=== PATIENT | male | born 1940 | race Caucasian/White ===

== ENCOUNTER 2020-04-27 21:46 | Inpatient (IN) ==
[2020-04-28] MEDS ORDERED: Ondansetron 4 MG/2 ML VIAL IVP PRN (01:12)
[2020-04-28 01:39] LABS: Basophils % 0.1 %; Hematocrit 24.2 % (37.5-50.1); Hemoglobin 7.2 g/dL (12.9-16.9); Immature Granulocytes % 0.9 % (0-4); Lymphocytes # 0.4 K/mcL (0.6-4.6); Lymphocytes % 2.8 %; Mean Corpuscular HGB Conc 29.8 g/dL (31.6-35.5); Mean Corpuscular Hemoglobin 24.2 pg (28.0-33.3); Mean Corpuscular Volume 81.5 fL (83.0-100.0); Mean Platelet Volume 10.1 fL (9.4-12.4); Monocytes # 1.7 K/mcL (0.0-1.3); Neutrophils # 11.6 K/mcL (1.6-8.9); Nucleated Red Blood Cells 0.2 /100 WBC (0); Platelet Count 314 K/mcL (140-400); Red Blood Count 2.97 M/mcL (4.19-5.50); Red Cell Distribution Width 18.2 % (11.5-14.5); Segmented Neutrophils % 84.2 %; White Blood Count 13.8 K/mcL (4.3-11.1)
[2020-04-28 01:43] LABS: BUN/Creatinine Ratio 61 (6-26); Blood Urea Nitrogen 84 mg/dL (8-23); Calcium 7.7 mg/dL (8.6-10.3); Carbon Dioxide 26 mEq/L (23-29); Chloride 111 mEq/L (98-107); Creatine Kinase 302 Units/L (30-223); Glucose 96 mg/dL (70-105); Osmolality,Calculated 325 (280-300); Potassium 3.3 mEq/L (3.5-5.1); Sodium 145 mEq/L (136-145); eGFR For African Americans > 60 (> 60); eGFR For Non-African Americans 50 (> 60)
[2020-04-28] MEDS ORDERED: 0.9 % Sodium Chloride 1,000 ML IVC SCH ×2 (01:45→12:39)
[2020-04-28] MEDS ORDERED: *HR* OxyCODONE Immed Rel 5 MG TABLET PO PRN (01:49)
[2020-04-28] MEDS ORDERED: *HR* Labetalol 20 MG/4 ML SYRINGE IVP PRN (01:49)
[2020-04-28 01:57] LABS: INR 1.2; Prothrombin Time 14.1 Seconds (9.4-12.1)
[2020-04-28] MEDS ORDERED: cefTRIAXone 1,000 MG in 0.9 % Sodium Chloride Mini Bag 100 ML IVPB SCH (02:00)
[2020-04-28 02:43] LABS: Thyroid Stimulating Hormone 1.023 mcIU/mL (0.340-5.600)
[2020-04-28 02:57] LABS: Folate 10.4 ng/mL (3.0-16.0)
[2020-04-28] MEDS: Naloxone 0.4 MG/ML INJ IVP PRN ×2 (03:20→07:02)
[2020-04-28 04:58] LABS: Bilirubin,Urine Negative (Negative); Blood,Urine Moderate (Negative); Clarity,Urine Clear (Clear); Color,Urine Light-Yellow (Yellow); Glucose,Urine (UA) Normal (Normal); Ketones,Urine Negative (Negative); Leukocyte Esterase,Urine Negative (Negative); Mucus,Urine Few per lpf (None-Few); Nitrite,Urine Negative (Negative); PH,Urine 5.5 pH Units (5.0-8.0); Protein,Urine Trace mg/dL (Neg-Trace); RBC,Urine TNTC per hpf (0-3); Specific Gravity,Urine 1.018 (1.010-1.025); Urobilinogen,Urine Normal (Normal); WBC,Urine 0-3 per hpf (0-3)
[2020-04-28 10:26] LABS: Basophils % 0.1 %; Mean Platelet Volume 9.6 fL (9.4-12.4); Segmented Neutrophils % 84.4 %
[2020-04-28 10:28] LABS: Hematocrit 24.5 % (37.5-50.1); Immature Granulocytes % 0.8 % (0-4); Lymphocytes # 0.5 K/mcL (0.6-4.6); Lymphocytes % 3.2 %; Mean Corpuscular HGB Conc 28.6 g/dL (31.6-35.5); Mean Corpuscular Volume 83.9 fL (83.0-100.0); Monocytes # 1.7 K/mcL (0.0-1.3); Monocytes % 11.5 %; Neutrophils # 12.3 K/mcL (1.6-8.9); Nucleated Red Blood Cells 0.1 /100 WBC (0); Platelet Count 272 K/mcL (140-400); Red Blood Count 2.92 M/mcL (4.19-5.50); Red Cell Distribution Width 18.2 % (11.5-14.5); White Blood Count 14.6 K/mcL (4.3-11.1)
[2020-04-28 10:54] LABS: Anisocytosis 1+ (Not Present); Hypochromasia Present (Not Present); Platelet Estimate Normal (Normal); Poikilocytosis 1+ (Not Present)
[2020-04-28] MEDS: *HR* OxyCODONE Immed Rel 5 MG TABLET PO PRN ×2 (12:19→13:54)
[2020-04-28] MEDS: Ipratropium/Albuterol Neb 3 ML IH SCH ×4 (12:21→23:44)
[2020-04-28] MEDS ORDERED: Iron Sucrose Complex 400 MG in 0.9 % Sodium Chloride 250 ML IVPB ONE (12:37)
[2020-04-28] MEDS ORDERED: CeFAZolin Syr 2,000MG/20 ML 2,000 MG/20 ML SYRINGE IVPB ONE (14:19)
[2020-04-28] MEDS ORDERED: Lidocaine HCL 4 ML Topical Solution (Laryng-O-Jet Kit Sterile Pak) TP ONE (14:27)
[2020-04-28] MEDS ORDERED: Ondansetron 4 MG/2 ML VIAL ONE (14:27)
[2020-04-28] MEDS ORDERED: Dexamethasone 4 MG/ML VIAL ONE (14:27)
[2020-04-28] MEDS ORDERED: *HR* Succinylcholine 200 MG/10 ML VIAL IVP ONE (14:27)
[2020-04-28] MEDS ORDERED: Lidocaine -MPF 2% 2 ML VIAL ONE (14:27)
[2020-04-28] MEDS ORDERED: *HR* FentaNYL (PF) 100 MCG/2 ML VIAL ONE (14:28)
[2020-04-28] MEDS ORDERED: *HR* Propofol 200 MG/20 ML VIAL IVP ONE (14:28)
[2020-04-28] MEDS ORDERED: *HR* Vasopressin 20 UNIT/ML VIAL ONE (14:48)
[2020-04-28] MEDS ORDERED: *HR* Norepinephrine 4 MG/4 ML VIAL IVC ONE (14:48)
[2020-04-28] MEDS ORDERED: Albumin Human 5% 25.0 GM/500 ML IV.SOLN ONE (14:48)
[2020-04-28] MEDS ORDERED: Tranexamic Acid 1,000 MG/10 ML VIAL ONE (15:10)
[2020-04-28] MEDS ORDERED: EPHEDrine 50 MG/ML VIAL ONE (15:14)
[2020-04-28] MEDS ORDERED: Lacri-Lube 3.5 GM TUBE ONE (15:19)
[2020-04-28] MEDS ORDERED: Povidone-Iodine 45 ML, Sodium Chloride IRRigation 1,000 ML IR ONE (15:30)
[2020-04-28] MEDS ORDERED: Sugammadex Sodium 200 MG/2 ML VIAL IV ONE (16:39)
[2020-04-28] MEDS ORDERED: *HR* Midazolam HCl 5 MG/5 ML VIAL IVP ONE (17:53)
[2020-04-28] MEDS: *HR* FentaNYL (PF) 100 MCG/2 ML VIAL IVP PRN ×2 (17:56→18:19)
[2020-04-28 18:28] LABS: ABG Base Excess -2 mEq/L (-2 to 3); ABG HCO3 29 mEq/L (21-27); ABG Oxygen Saturation 94 % (95-98); ABG PCO2 90 mmHg (35-45); ABG PH 7.11 pH Units (7.32-7.45); ABG PO2 101 mmHg (85-104); ABG TCO2 31 mEq/L (20-26); Blood Gas Modality ASSIST CONTROL; Blood Gas VT 350 cc
[2020-04-28 18:32] LABS: Immature Granulocytes % 1.8 % (0-4)
[2020-04-28 18:34] LABS: Basophils % 0.2 %; Hematocrit 29.4 % (37.5-50.1); Hemoglobin 8.5 g/dL (12.9-16.9); Lymphocytes # 0.4 K/mcL (0.6-4.6); Mean Corpuscular HGB Conc 28.9 g/dL (31.6-35.5); Mean Corpuscular Hemoglobin 25.1 pg (28.0-33.3); Monocytes % 7.3 %; Neutrophils # 12.5 K/mcL (1.6-8.9); Nucleated Red Blood Cells 0.2 /100 WBC (0); Platelet Count 272 K/mcL (140-400); Red Blood Count 3.38 M/mcL (4.19-5.50); Red Cell Distribution Width 17.7 % (11.5-14.5); Segmented Neutrophils % 87.7 %; White Blood Count 14.3 K/mcL (4.3-11.1)
[2020-04-28 18:45] LABS: INR 1.2; Prothrombin Time 14.3 Seconds (9.4-12.1)
[2020-04-28] MEDS ORDERED: Artificial Tears SOLN 15 ML BOTTLE BOTH EYES PRN (18:47)
[2020-04-28] MEDS: Midazolam HCl 50 MG/100 ML IV.SOLN IVC SCH (18:55)
[2020-04-28] MEDS: FentaNYL (PF) 1,000 MCG/100 ML IV.SOLN IVC SCH (18:55)
[2020-04-28 18:57] LABS: Alanine Aminotransferase 23 Units/L (7-52); Albumin 3.4 g/dL (3.5-5.7); Albumin/Globulin Ratio 1.2 (1.1-2.2); Alkaline Phosphatase 47 Units/L (34-104); Aspartate Amino Transferase 26 Units/L (13-39); BUN/Creatinine Ratio 51 (6-26); Bilirubin,Total 1.1 mg/dL (0.3-1.0); Blood Urea Nitrogen 61 mg/dL (8-23); Calcium 7.9 mg/dL (8.6-10.3); Carbon Dioxide 26 mEq/L (23-29); Chloride 116 mEq/L (98-107); Globulin 2.8 g/dL (2.4-3.5); Glucose 117 mg/dL (70-105); Osmolality,Calculated 326 (280-300); Potassium 4.2 mEq/L (3.5-5.1); Sodium 149 mEq/L (136-145); Total Protein 6.2 g/dL (6.4-8.9); eGFR For African Americans > 60 (> 60); eGFR For Non-African Americans 59 (> 60)
[2020-04-28 18:59] LABS: Anisocytosis 1+ (Not Present); Hypochromasia Present (Not Present); Platelet Estimate Normal (Normal); Poikilocytosis 1+ (Not Present); Target Cells 1+ (Not Present)
[2020-04-28 20:27] LABS: ABG Base Excess 4 mEq/L (-2 to 3); ABG HCO3 31 mEq/L (21-27); ABG Oxygen Saturation 98 % (95-98); ABG PCO2 64 mmHg (35-45); ABG PO2 116 mmHg (85-104); ABG TCO2 33 mEq/L (20-26); Blood Gas Modality ASSIST CONTROL; Blood Gas VT 350 cc
[2020-04-28] MEDS: Sennosides/Docusate Sodium TABLET PO SCH (21:07)
[2020-04-28] MEDS: Chlorhexidine Rinse 15 ML MOUTHWASH MM SCH (21:12)
[2020-04-28] MEDS: Pantoprazole 40 MG VIAL IVP SCH (21:12)
[2020-04-28] MEDS: Artificial Tears SOLN 15 ML BOTTLE BOTH EYES SCH ×2 (21:12→23:21)
[2020-04-28] MEDS: Cefepime HCl 1,000 MG in Water for inj. (sterile) 10 ML IVP SCH (23:21)
[2020-04-29] MEDS: Ipratropium/Albuterol Neb 3 ML IH SCH ×6 (03:27→23:38)
[2020-04-29 04:37] LABS: ABG Base Excess 2 mEq/L (-2 to 3); ABG HCO3 29 mEq/L (21-27); ABG Oxygen Saturation 87 % (95-98); ABG PCO2 57 mmHg (35-45); ABG PH 7.31 pH Units (7.32-7.45); ABG PO2 59 mmHg (85-104); ABG TCO2 31 mEq/L (20-26); Blood Gas Modality ASSIST CONTROL; Blood Gas VT 350 cc
[2020-04-29] MEDS: Artificial Tears SOLN 15 ML BOTTLE BOTH EYES SCH ×6 (06:32→23:26)
[2020-04-29 07:44] LABS: Basophils % 0.2 %; Hematocrit 24.1 % (37.5-50.1); Hemoglobin 7.2 g/dL (12.9-16.9); Immature Granulocytes % 1.3 % (0-4); Lymphocytes # 0.3 K/mcL (0.6-4.6); Lymphocytes % 2.9 %; Mean Corpuscular HGB Conc 29.9 g/dL (31.6-35.5); Mean Corpuscular Hemoglobin 24.9 pg (28.0-33.3); Mean Corpuscular Volume 83.4 fL (83.0-100.0); Mean Platelet Volume 9.4 fL (9.4-12.4); Monocytes # 1.1 K/mcL (0.0-1.3); Monocytes % 10.1 %; Neutrophils # 9.6 K/mcL (1.6-8.9); Nucleated Red Blood Cells 0.4 /100 WBC (0); Platelet Count 225 K/mcL (140-400); Red Blood Count 2.89 M/mcL (4.19-5.50); Red Cell Distribution Width 17.7 % (11.5-14.5); Segmented Neutrophils % 85.5 %; White Blood Count 11.2 K/mcL (4.3-11.1)
[2020-04-29 08:11] LABS: Calcium 8.2 mg/dL (8.6-10.3); Magnesium 2.5 mg/dL (1.6-2.6); Potassium 3.8 mEq/L (3.5-5.1)
[2020-04-29] MEDS: Pantoprazole 40 MG VIAL IVP SCH (09:28)
[2020-04-29] MEDS: Chlorhexidine Rinse 15 ML MOUTHWASH MM SCH ×2 (09:29→20:01)
[2020-04-29] MEDS: Sennosides/Docusate Sodium TABLET PO SCH ×2 (09:30→20:01)
[2020-04-29] MEDS: Cefepime HCl 1,000 MG in Water for inj. (sterile) 10 ML IVP SCH ×2 (12:41→23:26)
[2020-04-29] MEDS: *HR* Heparin 5,000 UNIT/ML VIAL SQ SCH ×2 (14:17→21:09)
[2020-04-29] MEDS: Nicotine 21 MG PATCH.TD24 TD SCH (15:20)
[2020-04-29 17:23] LABS: Hematocrit 24.2 % (37.5-50.1); Hemoglobin 7.3 g/dL (12.9-16.9); Mean Corpuscular HGB Conc 30.2 g/dL (31.6-35.5); Mean Corpuscular Hemoglobin 24.9 pg (28.0-33.3); Mean Corpuscular Volume 82.6 fL (83.0-100.0); Mean Platelet Volume 9.4 fL (9.4-12.4); Platelet Count 215 K/mcL (140-400); Red Blood Count 2.93 M/mcL (4.19-5.50); Red Cell Distribution Width 18.2 % (11.5-14.5); White Blood Count 12.3 K/mcL (4.3-11.1)
[2020-04-29 17:47] LABS: Calcium 8.1 mg/dL (8.6-10.3); Potassium 3.3 mEq/L (3.5-5.1)
[2020-04-29] MEDS: Budesonide/Formoterol 160/4.5 1 PUFF INH IH SCH (19:26)
[2020-04-29] MEDS: FentaNYL (PF) 1,000 MCG/100 ML IV.SOLN IVC SCH (19:48)
[2020-04-29] MEDS: Midazolam HCl 50 MG/100 ML IV.SOLN IVC SCH (20:01)
[2020-04-30] MEDS: Midazolam HCl 50 MG/100 ML IV.SOLN IVC SCH (02:57)
[2020-04-30] MEDS: Artificial Tears SOLN 15 ML BOTTLE BOTH EYES SCH ×6 (03:00→23:47)
[2020-04-30] MEDS: Ipratropium/Albuterol Neb 3 ML IH SCH ×6 (03:19→23:26)
[2020-04-30 05:00] LABS: ABG Base Excess 2 mEq/L (-2 to 3); ABG HCO3 30 mEq/L (21-27); ABG Oxygen Saturation 95 % (95-98); ABG PCO2 60 mmHg (35-45); ABG PO2 84 mmHg (85-104); ABG TCO2 32 mEq/L (20-26); Blood Gas Modality AF; Blood Gas VT 350 cc
[2020-04-30 05:46] LABS: Alanine Aminotransferase 16 Units/L (7-52); Albumin/Globulin Ratio 1.1 (1.1-2.2); Alkaline Phosphatase 44 Units/L (34-104); Aspartate Amino Transferase 20 Units/L (13-39); BUN/Creatinine Ratio 45 (6-26); Bilirubin,Total 0.7 mg/dL (0.3-1.0); Blood Urea Nitrogen 60 mg/dL (8-23); Calcium 8.3 mg/dL (8.6-10.3); Carbon Dioxide 25 mEq/L (23-29); Chloride 118 mEq/L (98-107); Globulin 2.8 g/dL (2.4-3.5); Glucose 98 mg/dL (70-105); Osmolality,Calculated 333 (280-300); Potassium 3.5 mEq/L (3.5-5.1); Sodium 153 mEq/L (136-145); Total Protein 5.8 g/dL (6.4-8.9); eGFR For African Americans > 60 (> 60); eGFR For Non-African Americans 52 (> 60)
[2020-04-30] MEDS: *HR* Heparin 5,000 UNIT/ML VIAL SQ SCH ×3 (07:21→22:06)
[2020-04-30] MEDS: Chlorhexidine Rinse 15 ML MOUTHWASH MM SCH ×2 (07:21→20:31)
[2020-04-30] MEDS: Pantoprazole 40 MG VIAL IVP SCH (07:21)
[2020-04-30] MEDS: Sennosides/Docusate Sodium TABLET PO SCH ×2 (07:22→19:52)
[2020-04-30] MEDS: Budesonide/Formoterol 160/4.5 1 PUFF INH IH SCH ×2 (07:32→19:30)
[2020-04-30] MEDS: Cefepime HCl 1,000 MG in Water for inj. (sterile) 10 ML IVP SCH ×2 (12:57→23:47)
[2020-04-30 14:17] LABS: Hematocrit 26.1 % (37.5-50.1); Hemoglobin 7.7 g/dL (12.9-16.9); Mean Corpuscular HGB Conc 29.5 g/dL (31.6-35.5); Mean Corpuscular Hemoglobin 25.5 pg (28.0-33.3); Mean Corpuscular Volume 86.4 fL (83.0-100.0); Mean Platelet Volume 9.6 fL (9.4-12.4); Platelet Count 217 K/mcL (140-400); Red Blood Count 3.02 M/mcL (4.19-5.50); White Blood Count 16.1 K/mcL (4.3-11.1)
[2020-04-30] MEDS: Nicotine 21 MG PATCH.TD24 TD SCH (16:21)
[2020-04-30] MEDS: D5% in Water 1,000 ML IVC SCH (16:24)
[2020-04-30] MEDS: FentaNYL (PF) 1,000 MCG/100 ML IV.SOLN IVC SCH (19:50)
[2020-04-30] MEDS: *HR* FentaNYL (PF) 100 MCG/2 ML VIAL IVP PRN (22:09)
[2020-05-01] MEDS: *HR* FentaNYL (PF) 100 MCG/2 ML VIAL IVP PRN ×7 (00:55→16:23)
[2020-05-01] MEDS: D5% in Water 1,000 ML IVC SCH ×3 (02:21→19:44)
[2020-05-01] MEDS: Ipratropium/Albuterol Neb 3 ML IH SCH ×5 (03:22→20:07)
[2020-05-01] MEDS: Artificial Tears SOLN 15 ML BOTTLE BOTH EYES SCH ×2 (04:01→10:42)
[2020-05-01] MEDS: *HR* Heparin 5,000 UNIT/ML VIAL SQ SCH ×2 (05:18→12:55)
[2020-05-01] MEDS: Budesonide/Formoterol 160/4.5 1 PUFF INH IH SCH ×2 (07:27→20:06)
[2020-05-01 08:45] LABS: Hemoglobin 8.3 g/dL (12.9-16.9); Mean Corpuscular HGB Conc 29.6 g/dL (31.6-35.5); Mean Corpuscular Volume 84.3 fL (83.0-100.0); Mean Platelet Volume 9.6 fL (9.4-12.4); Platelet Count 203 K/mcL (140-400); Red Blood Count 3.32 M/mcL (4.19-5.50); Red Cell Distribution Width 19.2 % (11.5-14.5)
[2020-05-01 09:03] LABS: Alanine Aminotransferase 22 Units/L (7-52); Albumin/Globulin Ratio 1.1 (1.1-2.2); Alkaline Phosphatase 47 Units/L (34-104); Aspartate Amino Transferase 29 Units/L (13-39); BUN/Creatinine Ratio 44 (6-26); Bilirubin,Total 0.8 mg/dL (0.3-1.0); Blood Urea Nitrogen 45 mg/dL (8-23); Calcium 8.7 mg/dL (8.6-10.3); Carbon Dioxide 32 mEq/L (23-29); Chloride 115 mEq/L (98-107); Globulin 2.8 g/dL (2.4-3.5); Glucose 104 mg/dL (70-105); Osmolality,Calculated 324 (280-300); Potassium 3.7 mEq/L (3.5-5.1); Sodium 151 mEq/L (136-145); Total Protein 5.8 g/dL (6.4-8.9); eGFR For African Americans > 60 (> 60); eGFR For Non-African Americans > 60 (> 60)
[2020-05-01] MEDS: Chlorhexidine Rinse 15 ML MOUTHWASH MM SCH (09:40)
[2020-05-01] MEDS: Pantoprazole 40 MG VIAL IVP SCH (09:41)
[2020-05-01] MEDS: Sennosides/Docusate Sodium TABLET PO SCH ×2 (10:42→19:46)
[2020-05-01] MEDS: Cefepime HCl 1,000 MG in Water for inj. (sterile) 10 ML IVP SCH (12:54)
[2020-05-01] MEDS: Nicotine 21 MG PATCH.TD24 TD SCH (16:24)
[2020-05-01] MEDS ORDERED: *HR* OxyCODONE Immed Rel 5 MG TABLET PO PRN (18:26)
[2020-05-01] MEDS ORDERED: Naloxone 0.4 MG/ML INJ IVP PRN (18:26)
[2020-05-01] MEDS ORDERED: *HR* FentaNYL (PF) 100 MCG/2 ML VIAL IVP PRN (18:26)
[2020-05-01] MEDS ORDERED: *HR* Labetalol 20 MG/4 ML SYRINGE IVP PRN (18:26)
[2020-05-01] MEDS ORDERED: Ondansetron 4 MG/2 ML VIAL IVP PRN (18:26)
[2020-05-01] MEDS ORDERED: D5% in Water 1,000 ML IVC ONE (18:43)
[2020-05-02] MEDS: Ipratropium/Albuterol Neb 3 ML IH SCH ×7 (00:29→23:04)
[2020-05-02] MEDS: *HR* Heparin 5,000 UNIT/ML VIAL SQ SCH ×4 (01:00→20:30)
[2020-05-02 01:56] LABS: Hematocrit 25.2 % (37.5-50.1); Hemoglobin 7.6 g/dL (12.9-16.9); Mean Corpuscular HGB Conc 30.2 g/dL (31.6-35.5); Mean Corpuscular Hemoglobin 25.5 pg (28.0-33.3); Mean Corpuscular Volume 84.6 fL (83.0-100.0); Mean Platelet Volume 10.3 fL (9.4-12.4); Platelet Count 185 K/mcL (140-400); Red Blood Count 2.98 M/mcL (4.19-5.50); White Blood Count 15.7 K/mcL (4.3-11.1)
[2020-05-02 02:06] LABS: BUN/Creatinine Ratio 42 (6-26); Blood Urea Nitrogen 38 mg/dL (8-23); Calcium 8.4 mg/dL (8.6-10.3); Carbon Dioxide 34 mEq/L (23-29); Chloride 111 mEq/L (98-107); Glucose 131 mg/dL (70-105); Osmolality,Calculated 315 (280-300); Potassium 3.8 mEq/L (3.5-5.1); Sodium 147 mEq/L (136-145); eGFR For African Americans > 60 (> 60); eGFR For Non-African Americans > 60 (> 60)
[2020-05-02] MEDS ORDERED: MethylPREDNISolone 40 MG/ML VIAL IVP SCH (06:00)
[2020-05-02] MEDS: Budesonide/Formoterol 160/4.5 1 PUFF INH IH SCH ×2 (07:29→20:21)
[2020-05-02] MEDS: *HR* FentaNYL (PF) 100 MCG/2 ML VIAL IVP PRN ×2 (08:04→13:54)
[2020-05-02] MEDS ORDERED: cefTRIAXone 1,000 MG in Water for inj. (sterile) 10 ML IVP SCH (09:00)
[2020-05-02] MEDS: D5% in Water 1,000 ML IVC SCH ×2 (09:02→22:00)
[2020-05-02] MEDS: Sennosides/Docusate Sodium TABLET PO SCH ×2 (09:04→20:30)
[2020-05-02] MEDS: cefTRIAXone 1,000 MG in Water for inj. (sterile) 10 ML IVP SCH (09:04)
[2020-05-02] MEDS: Pantoprazole 40 MG VIAL IVP SCH (09:04)
[2020-05-02] MEDS: Nicotine 21 MG PATCH.TD24 TD SCH (17:39)
[2020-05-03] MEDS: Ipratropium/Albuterol Neb 3 ML IH SCH ×6 (03:27→23:51)
[2020-05-03] MEDS: *HR* Heparin 5,000 UNIT/ML VIAL SQ SCH ×3 (06:00→21:57)
[2020-05-03 07:28] LABS: Hematocrit 24.4 % (37.5-50.1); Hemoglobin 7.5 g/dL (12.9-16.9); Mean Corpuscular HGB Conc 30.7 g/dL (31.6-35.5); Mean Corpuscular Hemoglobin 25.7 pg (28.0-33.3); Mean Corpuscular Volume 83.6 fL (83.0-100.0); Platelet Count 194 K/mcL (140-400); Red Blood Count 2.92 M/mcL (4.19-5.50); Red Cell Distribution Width 19.8 % (11.5-14.5)
[2020-05-03 07:29] LABS: White Blood Count 24.7 K/mcL (4.3-11.1)
[2020-05-03 07:31] LABS: Basophils % 0.2 %
[2020-05-03 07:33] LABS: Basophils # 0.1 K/mcL (0.0-0.2); Hematocrit 24.1 % (37.5-50.1); Hemoglobin 7.5 g/dL (12.9-16.9); Immature Granulocytes % 1.3 % (0-4); Lymphocytes # 0.4 K/mcL (0.6-4.6); Lymphocytes % 1.6 %; Mean Corpuscular HGB Conc 31.1 g/dL (31.6-35.5); Mean Corpuscular Hemoglobin 25.9 pg (28.0-33.3); Mean Corpuscular Volume 83.1 fL (83.0-100.0); Monocytes # 1.1 K/mcL (0.0-1.3); Monocytes % 4.6 %; Neutrophils # 22.4 K/mcL (1.6-8.9); Platelet Count 190 K/mcL (140-400); Red Cell Distribution Width 19.5 % (11.5-14.5); Segmented Neutrophils % 92.3 %; White Blood Count 24.3 K/mcL (4.3-11.1)
[2020-05-03 08:32] LABS: BUN/Creatinine Ratio 40 (6-26); Blood Urea Nitrogen 36 mg/dL (8-23); Calcium 8.3 mg/dL (8.6-10.3); Carbon Dioxide 30 mEq/L (23-29); Chloride 104 mEq/L (98-107); Glucose 150 mg/dL (70-105); Osmolality,Calculated 297 (280-300); Potassium 3.6 mEq/L (3.5-5.1); Sodium 138 mEq/L (136-145); eGFR For African Americans > 60 (> 60); eGFR For Non-African Americans > 60 (> 60)
[2020-05-03] MEDS: Pantoprazole 40 MG VIAL IVP SCH (09:04)
[2020-05-03] MEDS: Sennosides/Docusate Sodium TABLET PO SCH ×2 (09:04→21:56)
[2020-05-03] MEDS: cefTRIAXone 1,000 MG in Water for inj. (sterile) 10 ML IVP SCH (09:05)
[2020-05-03] MEDS: Budesonide/Formoterol 160/4.5 1 PUFF INH IH SCH ×2 (11:03→20:05)
[2020-05-03 11:11] LABS: Macrocytosis Present (Not Present); Platelet Estimate Decreased (Normal)
[2020-05-03 11:12] LABS: Anisocytosis 1+ (Not Present); Hypochromasia Present (Not Present)
[2020-05-03] MEDS: D5% in Water 1,000 ML IVC SCH (12:12)
[2020-05-03] MEDS: Nicotine 21 MG PATCH.TD24 TD SCH (14:18)
[2020-05-03] MEDS ORDERED: D5% in 0.45% NACL 1,000 ML IVC SCH (14:22)
[2020-05-04] MEDS: Ipratropium/Albuterol Neb 3 ML IH SCH ×6 (04:25→23:19)
[2020-05-04 05:13] LABS: Basophils % 0.1 %; Hematocrit 23.4 % (37.5-50.1); Hemoglobin 7.2 g/dL (12.9-16.9); Immature Granulocytes % 0.7 % (0-4); Lymphocytes # 0.6 K/mcL (0.6-4.6); Lymphocytes % 2.8 %; Mean Corpuscular HGB Conc 30.8 g/dL (31.6-35.5); Mean Corpuscular Hemoglobin 25.3 pg (28.0-33.3); Mean Corpuscular Volume 82.1 fL (83.0-100.0); Mean Platelet Volume 10.4 fL (9.4-12.4); Monocytes # 1.3 K/mcL (0.0-1.3); Monocytes % 6.4 %; Neutrophils # 18.3 K/mcL (1.6-8.9); Platelet Count 211 K/mcL (140-400); Red Blood Count 2.85 M/mcL (4.19-5.50); White Blood Count 20.3 K/mcL (4.3-11.1)
[2020-05-04 05:20] LABS: BUN/Creatinine Ratio 36 (6-26); Blood Urea Nitrogen 42 mg/dL (8-23); Calcium 8.1 mg/dL (8.6-10.3); Carbon Dioxide 29 mEq/L (23-29); Chloride 102 mEq/L (98-107); Glucose 105 mg/dL (70-105); Osmolality,Calculated 295 (280-300); Potassium 3.4 mEq/L (3.5-5.1); Sodium 137 mEq/L (136-145); eGFR For African Americans > 60 (> 60); eGFR For Non-African Americans 60 (> 60)
[2020-05-04] MEDS: *HR* Heparin 5,000 UNIT/ML VIAL SQ SCH ×3 (05:29→22:30)
[2020-05-04] MEDS ORDERED: Potassium Chloride Elixir 20 MEQ/15 ML UDC PO ONE (07:26)
[2020-05-04] MEDS ORDERED: Furosemide 20 MG/2 ML VIAL IVP ONE (10:24)
[2020-05-04] MEDS: Budesonide/Formoterol 160/4.5 1 PUFF INH IH SCH ×2 (11:23→19:56)
[2020-05-04] MEDS: Pantoprazole 40 MG VIAL IVP SCH (15:26)
[2020-05-04] MEDS: cefTRIAXone 1,000 MG in Water for inj. (sterile) 10 ML IVP SCH (15:27)
[2020-05-04] MEDS: Nicotine 21 MG PATCH.TD24 TD SCH (15:28)
[2020-05-04] MEDS: Sennosides/Docusate Sodium TABLET PO SCH ×2 (15:28→22:30)
[2020-05-05] MEDS: Ipratropium/Albuterol Neb 3 ML IH SCH ×6 (04:07→23:21)
[2020-05-05] MEDS: *HR* Heparin 5,000 UNIT/ML VIAL SQ SCH ×3 (05:44→21:41)
[2020-05-05] MEDS: Budesonide/Formoterol 160/4.5 1 PUFF INH IH SCH ×2 (07:44→19:49)
[2020-05-05 07:53] LABS: Basophils % 0.1 %; Eosinophils # 0.1 K/mcL (0.0-0.6); Eosinophils % 0.6 %; Hematocrit 26.3 % (37.5-50.1); Immature Granulocytes % 0.6 % (0-4); Lymphocytes # 0.5 K/mcL (0.6-4.6); Lymphocytes % 2.2 %; Mean Corpuscular HGB Conc 30.4 g/dL (31.6-35.5); Mean Corpuscular Hemoglobin 25.3 pg (28.0-33.3); Mean Corpuscular Volume 83.2 fL (83.0-100.0); Mean Platelet Volume 10.5 fL (9.4-12.4); Monocytes # 1.3 K/mcL (0.0-1.3); Neutrophils # 18.8 K/mcL (1.6-8.9); Platelet Count 237 K/mcL (140-400); Red Blood Count 3.16 M/mcL (4.19-5.50); Red Cell Distribution Width 21.1 % (11.5-14.5); Segmented Neutrophils % 90.5 %; White Blood Count 20.8 K/mcL (4.3-11.1)
[2020-05-05 08:12] LABS: BUN/Creatinine Ratio 40 (6-26); Blood Urea Nitrogen 39 mg/dL (8-23); Calcium 8.2 mg/dL (8.6-10.3); Carbon Dioxide 29 mEq/L (23-29); Chloride 103 mEq/L (98-107); Glucose 48 mg/dL (70-105); Osmolality,Calculated 297 (280-300); Potassium 3.3 mEq/L (3.5-5.1); Sodium 140 mEq/L (136-145); eGFR For African Americans > 60 (> 60); eGFR For Non-African Americans > 60 (> 60)
[2020-05-05] MEDS ORDERED: Potassium Chloride 40 MEQ, Lidocaine 1% 2 ML in 0.9 % Sodium Chloride 500 ML IVPB ONE (08:22)
[2020-05-05] MEDS: Sennosides/Docusate Sodium TABLET PO SCH ×2 (09:31→21:41)
[2020-05-05] MEDS: Pantoprazole 40 MG VIAL IVP SCH (09:33)
[2020-05-05] MEDS: cefTRIAXone 1,000 MG in Water for inj. (sterile) 10 ML IVP SCH (09:34)
[2020-05-05] MEDS: Nicotine 21 MG PATCH.TD24 TD SCH (14:10)
[2020-05-06] MEDS: Ipratropium/Albuterol Neb 3 ML IH SCH ×6 (03:36→23:12)
[2020-05-06] MEDS: *HR* Heparin 5,000 UNIT/ML VIAL SQ SCH ×3 (06:04→21:55)
[2020-05-06] MEDS: Budesonide/Formoterol 160/4.5 1 PUFF INH IH SCH ×2 (07:49→20:23)
[2020-05-06] MEDS: Sennosides/Docusate Sodium TABLET PO SCH ×2 (09:00→21:55)
[2020-05-06] MEDS: Pantoprazole 40 MG VIAL IVP SCH (09:01)
[2020-05-06] MEDS: cefTRIAXone 1,000 MG in Water for inj. (sterile) 10 ML IVP SCH (09:01)
[2020-05-06 14:10] LABS: Basophils % 0.1 %; Eosinophils # 0.2 K/mcL (0.0-0.6); Eosinophils % 1.6 %; Hematocrit 27.2 % (37.5-50.1); Hemoglobin 8.2 g/dL (12.9-16.9); Immature Granulocytes % 0.5 % (0-4); Lymphocytes # 0.5 K/mcL (0.6-4.6); Lymphocytes % 3.2 %; Mean Corpuscular HGB Conc 30.1 g/dL (31.6-35.5); Mean Corpuscular Volume 82.9 fL (83.0-100.0); Mean Platelet Volume 10.5 fL (9.4-12.4); Monocytes # 0.9 K/mcL (0.0-1.3); Monocytes % 6.5 %; Neutrophils # 12.5 K/mcL (1.6-8.9); Platelet Count 271 K/mcL (140-400); Red Blood Count 3.28 M/mcL (4.19-5.50); Segmented Neutrophils % 88.1 %; White Blood Count 14.2 K/mcL (4.3-11.1)
[2020-05-06 14:28] LABS: BUN/Creatinine Ratio 42 (6-26); Blood Urea Nitrogen 42 mg/dL (8-23); Carbon Dioxide 30 mEq/L (23-29); Chloride 106 mEq/L (98-107); Glucose 136 mg/dL (70-105); Osmolality,Calculated 307 (280-300); Potassium 3.6 mEq/L (3.5-5.1); Sodium 142 mEq/L (136-145); eGFR For African Americans > 60 (> 60); eGFR For Non-African Americans > 60 (> 60)
[2020-05-06] MEDS: Nicotine 21 MG PATCH.TD24 TD SCH (14:45)
[2020-05-06] MEDS: cephALEXin 500 MG CAPSULE PO SCH ×2 (18:15→21:55)
[2020-05-07] MEDS: Ipratropium/Albuterol Neb 3 ML IH SCH ×5 (03:54→20:43)
[2020-05-07] MEDS: Sennosides/Docusate Sodium TABLET PO SCH ×4 (07:45→20:16)
[2020-05-07] MEDS: *HR* Heparin 5,000 UNIT/ML VIAL SQ SCH ×3 (08:52→20:16)
[2020-05-07] MEDS: cephALEXin 500 MG CAPSULE PO SCH ×5 (08:55→20:16)
[2020-05-07] MEDS: Pantoprazole 40 MG VIAL IVP SCH (08:55)
[2020-05-07] MEDS: Budesonide/Formoterol 160/4.5 1 PUFF INH IH SCH ×2 (10:53→20:43)
[2020-05-07] MEDS: Nicotine 21 MG PATCH.TD24 TD SCH (14:09)
[2020-05-08] MEDS: Ipratropium/Albuterol Neb 3 ML IH SCH ×7 (00:29→19:58)
[2020-05-08] MEDS: *HR* Heparin 5,000 UNIT/ML VIAL SQ SCH ×2 (06:00→14:43)
[2020-05-08] MEDS: Budesonide/Formoterol 160/4.5 1 PUFF INH IH SCH ×2 (07:27→20:00)
[2020-05-08] MEDS: Sennosides/Docusate Sodium TABLET PO SCH (08:06)
[2020-05-08] MEDS: Pantoprazole 40 MG VIAL IVP SCH (08:06)
[2020-05-08] MEDS: cephALEXin 500 MG CAPSULE PO SCH ×3 (08:07→18:11)
[2020-05-08] MEDS: Nicotine 21 MG PATCH.TD24 TD SCH (15:54)
[2020-05-08 19:37] LABS: Adenovirus Not Detected (Not Detect); Bordetella Pertussis Not Detected (Not Detect); Chlamydophila pneumoniae Not Detected (Not Detect); Coronavirus 229E Not Detected (Not Detect); Coronavirus HKU1 Not Detected (Not Detect); Coronavirus NL63 Not Detected (Not Detect); Coronavirus OC43 Not Detected (Not Detect); Human Metapneumovirus Not Detected (Not Detect); Human Rhinovirus/Enterovirus Not Detected (Not Detect); Influenza A Subtype 2009 H1 Not Detected (Not Detect); Influenza B Not Detected (Not Detect); Mycoplasma pneumoniae Not Detected (Not Detect); Parainfluenza Virus 1 Not Detected (Not Detect); Parainfluenza Virus 2 Not Detected (Not Detect); Parainfluenza Virus 3 Not Detected (Not Detect); Parainfluenza Virus 4 Not Detected (Not Detect); Respiratory Syncytial Virus Not Detected (Not Detect); SARS-CoV-2 Not Detected (Not Detect)
[2020-05-08 19:49] VITALS: BP 149/73
== END 2020-05-08 21:46 | DRG 480 ==
LOC: 3NENU → SUATTDRO 04-28 00:13 → ICNU 04-28 17:32 → 3NENU 05-02 19:11
PROVIDERS: ADMIT Family Medicine; ATTEND Student in an Organized Health Care Education/Training Program